=== PATIENT | female | born 1990 | race Caucasian/White ===

== ENCOUNTER 2017-07-13 15:17 | Inpatient (IN) | payer MEDICAID, OTHER ==
--- NOTE | 2017-07-13 16:16 | EDPHY ---
General - History Smoking Status: Current some day smoker Time Seen by Provider: 07/13/17 16:08 Narrative: CHIEF COMPLAINT: Fall, foot and ankle pain HISTORY OF PRESENT ILLNESS: Patient presents by private vehicle with complaints of ankle and foot pain after fall. She was climbing at [facility] earlier today. She says she was approximately 25-30 feet up when she slipped and fell. She was lead climbing in her rope did not catch her. She landed on a ledge on rocks. She did not strike her head or lose consciousness. She has complaints of pain only in ankles and heels on both feet. She has some tingling of the left midfoot. No numbness. No pain in the left shins, knees, hips. No pain in the chest or midline of the back. No nausea or vomiting. Unable to bear weight due to the pain. They were fairly high up, requiring an additional 2-3 hours to further descend. She was then carried to the vehicle. No other associated complaints or modifying factors. NPO status: 3:00 p.m. REVIEW OF SYSTEMS: Ten systems reviewed and are negative unless otherwise noted in the HPI PCP: None SPECIALISTS: None PAST MEDICAL HISTORY: Denies any medical history PAST SURGICAL HISTORY: No recent surgery SOCIAL HISTORY: Nonsmoker. Lives and works here independently. FAMILY HISTORY: Noncontributory EXAMINATION General Appearance: Alert, no distress Head: normocephalic, atraumatic. No depression. No scalp laceration. Eyes: Pupils equal and round, no conjunctival pallor or injection ENT, Mouth: Mucous membranes moist. Uvula midline. Airway widely patent Neck: Normal inspection, supple, non-tender Respiratory: Lungs are clear to auscultation. No wheezing rhonchi or crackles Cardiovascular: Regular rate and rhythm. No murmur Gastrointestinal: Abdomen is soft and nontender Back: non-tender, no bony abnormalities Neurological: GCS 15. A&O, nonfocal, strength is symmetric in the upper extremities. Strength of the great toes is symmetric. Sensory is symmetric in the dorsum of the feet with reported paresthesia on the left midfoot. Skin: Warm and dry, no rash. No petechiae. No purpura. No puncture laceration. There is moderate swelling and ecchymosis to both ankles Extremities: Significant tenderness of the left calcaneus, right midfoot, right medial malleolus and left lateral malleolus. Psychiatric: Mood and affect normal DIFFERENTIAL DIAGNOSES: Including but not limited to hematoma, calcaneus fracture, calcaneus contusion, ankle sprain, ankle fracture, mid foot fracture, mid foot sprain MDM: 4:15 p.m. Fall of reportedly 30 ft height with pain in both heels, both ankles. There is no pain in the shins, knees, hips, thighs, back, abdomen or pelvis. No head injury. She is neurovascular intact distally. I have ordered x-rays of both ankles and both calcaneal bones. No acute distress. Vital signs stable 4:50 p.m. X-rays of the feet and ankles reveal comminuted, displaced fractures of the calcaneus on the left; comminuted fracture of the right talus and midfoot fractures. I will consult Orthopedics. 5:20 p.m. Case discussed with both orthopedics trauma surgeon. Orthopedics will provide consultation shortly emergency department. Dr. Gomez will provide consultation and informs me that Orthopedics and admit patient. 6:00 p.m. Patient has been evaluated by orthopedic PA. She will discuss with her attending physician. They recommend posterior splint with stirrup on both lower extremities. They will likely not be able to take the patient to the operating room until tomorrow morning. Dr. Gomez will provide consultation as well. SUPERVISION: Patient was evaluated and examined in conjunction with my secondary supervising physician as documented. We have both examined the patient. (Raman Wright) Medical Decision Making: I did evaluate this patient independently and agree with the plan documented. I spoke with Dr. Patel who will admit her but is wanting to get a CT scan to assess for possible surgical intervention tonight. (Rohit Dawson) - Objective Vital Signs: Initial Vital Signs Temperature (C) 98.8 F 07/13/17 15:46 Heart Rate 80 07/13/17 15:46 Respiratory Rate 18 07/13/17 15:46 Blood Pressure 125/81 H 07/13/17 15:46 O2 Sat (%) 97 07/13/17 15:46 O2 Delivery Mode Room Air Allergies/Adverse Reactions: No Known Allergies Allergy (Verified 07/13/17 15:45) Home Medications: Medication Instructions Recorded Levonorgestrel [Elly] 1 each IY ONCE 07/13/17 Laboratory Results: Laboratory Results 07/13/17 17:17 07/13/17 17:17 Medications Given: Acetaminophen (Tylenol) 650 mg PO Q6HRS [facility] Stop: 01/10/18 00:00 Last Admin: 07/14/17 12:31 Dose: 650 mg Cyclobenzaprine HCl (Flexeril) 10 mg PO Q8HRS PRN PRN Reason: Muscle Spasms Stop: 01/09/18 20:15 Last Admin: 07/14/17 15:37 Dose: 10 mg Famotidine (Pepcid) 20 mg PO BID [facility] Stop: 01/09/18 20:59 Last Admin: 07/14/17 09:26 Dose: 20 mg Lactated Ringer's (Lr) 1,000 mls @ 125 mls/hr IV CONT [facility] Stop: 07/14/17 20:29 Last Admin: 07/14/17 04:00 Dose: 1,000 mls Morphine Sulfate (Morphine) 2 - 4 mg IVP Q3HRS PRN PRN Reason: breakthrough pain Stop: 07/23/17 20:15 Last Admin: 07/14/17 12:33 Dose: 2 mg Oxycodone HCl (Oxycodone Ir) 5 - 10 mg PO Q3HRS PRN PRN Reason: Breakthrough pain Stop: 07/23/17 20:15 Last Admin: 07/14/17 15:36 Dose: 10 mg Senna/Docusate Sodium (Senokot-S) 1 - 2 tab PO BID [facility] PRN Reason: Protocol Stop: 01/09/18 20:59 Last Admin: 07/14/17 09:25 Dose: 2 tab Discontinued Medications Hydromorphone HCl (Dilaudid) 1 mg IVP EDNOW ONE Stop: 07/13/17 19:27 Last Admin: 07/13/17 19:43 Dose: 1 mg Sodium Chloride (Ns) 1,000 mls @ 0 mls/hr IV ONCE ONE PRN Reason: Wide Open Stop: 07/13/17 18:45 Last Admin: 07/13/17 18:54 Dose: 1,000 mls Oxycodone HCl (Oxycodone Ir) 10 mg PO EDNOW ONE Stop: 07/13/17 16:20 Last Admin: 04/12/18 16:29 Dose: 10 mg Departure - Departure Disposition: [facility] Inpatient Acute Clinical Impression: Left calcaneal fracture Qualifiers: Encounter type: initial encounter Calcaneus location: unspecified portion of calcaneus Fracture type: closed Fracture alignment: displaced Qualified Code(s) : S92.002A - Unspecified fracture of left calcaneus, initial encounter for closed fracture Closed fracture of right talus Qualifiers: Encounter type: initial encounter Talus location: unspecified portion of talus Fracture alignment: displaced Qualified Code(s): S92.101A - Unspecified fracture of right talus, initial encounter for closed fracture Condition: Fair
[2017-07-13] MEDS ORDERED: oxyCODONE IR 5 MG TAB PO ONE (16:19)
[2017-07-13 17:34] LABS: INR 0.98 (0.83-1.16); PROTIME(PATIENT) 13.2 SEC (12.0-15.0)
[2017-07-13] MEDS ORDERED: NS 1,000 ML IV ONE (18:44)
[2017-07-13] MEDS ORDERED: HYDROmorphONE/DILAUDID 2 MG/ML INJ ONE (19:24)
[2017-07-13] MEDS ORDERED: HYDROmorphONE/DILAUDID 2 MG/ML INJ IVP ONE (19:26)
--- NOTE | 2017-07-13 20:04 | GHP ---
[f rep st] PREOP HISTORY AND PHYSICAL DATE OF ADMISSION: 07/13/2017 HISTORY OF PRESENT ILLNESS: Patient is 27-year-old female, who fell rock climbing, landing on both f eet. She complains of both feet hurting significantly. She denies any other injuries or concerns. She did not hit her head or lose consciousness. She thinks she fell 20-30 feet. She was roped, but her protection did not catch her. She landed on a ledge. Evaluation in the ER reveals a left calcan eal fracture and a right talus fracture. Lumbar spine films are negative, and she denies any lumbar pain. PAST MEDICAL HISTORY: Negative for any major hospitalizations or surgeries. SOCIAL HISTORY: Reveals she does smoke occasionally. FAMILY HISTORY: Noncontributory. ALLERGIES: None. MEDICATIONS: Elly, and she has an IUD. REVIEW OF SYSTEMS: Negative on a full 10-point review of systems, except as related to the HPI. PHYSICAL EXAMINATION: GENERAL: An alert 27-year-old female, who is in no acute distress. HEAD and NECK: Reveals no icterus or adenopathy. NECK: Supple nontender. CHEST: Clear and symmetric. CARD IAC: Regular rhythm without murmurs. ABDOMEN: Soft and nontender. EXTREMITIES: Reveal full pulse s. Both ankle and calcaneal areas are tender bilaterally with some swelling in the area, worse on th e left. She has palpable pedal pulses. NEUROLOGIC: Physiologic and symmetric. PSYCH: Reveals her to be alert, oriented, cooperative. SKIN: Intact with no significant abrasions or lacerations. IMPRESSION: A left calcaneal fracture, right talus fracture. No other major injuries. PLAN: Orthopedic consultation for admission and eventual surgical repair. /[id number]/MODL
[2017-07-13] MEDS ORDERED: ONDANSETRON 4 MG/2 ML VIAL IVP PRN (20:16)
[2017-07-13] MEDS ORDERED: MAGNESIUM HYDROXIDE 30 ML UDCUP PO PRN (20:16)
[2017-07-13] MEDS ORDERED: DIPHENOXYLATE/ATROPINE LOMOTIL 1 TAB PO PRN (20:16)
[2017-07-13] MEDS ORDERED: ONDANSETRON DISINTEGRATING 4 MG TAB PO PRN (20:16)
[2017-07-13] MEDS ORDERED: LACTULOSE 20 GM/30 ML UDCUP PO PRN (20:16)
[2017-07-13] MEDS ORDERED: NS 500 ML IV PRN (20:16)
[2017-07-13] MEDS ORDERED: BISACODYL 10 MG SUPP PR PRN (20:16)
[2017-07-13] MEDS ORDERED: diphenhydrAMINE 25 MG CAP PO PRN (20:16)
[2017-07-13] MEDS ORDERED: LR 1,000 ML IV SCH (20:30)
[2017-07-13] MEDS: SENNOSIDES/DOCUSATE SODIUM TAB PO SCH (20:50)
[2017-07-13] MEDS: FAMOTIDINE 20 MG TAB PO SCH (20:50)
[2017-07-13] MEDS: oxyCODONE IR 5 MG TAB PO PRN (20:50)
--- NOTE | 2017-07-13 21:27 | SOAPPROG ---
ANDREAS Progress Note Assessment/Plan: Assessment: Right talus fracture Left calcaneus fracture Plan: NWB LLE in posterior splint Elevate B/L LE's Ice to B/L knee/feet Pain medicine as neede Planning for surgical fixation Monday07/16/[address] Patel Ortho Stable Subjective: 27 year old female who was rock climbing and slipped and fell from about 30 feet up. She states that she does have pain in her bilateral ankle/foot. She was placed in bilateral lower extremity posterior splints. Objective: Vital Signs Temp Pulse Resp BP Pulse Ox 36.6 C 61 16 115/59 L 94 07/13/17 19:50 07/13/17 19:50 07/13/17 19:50 07/13/17 19:50 07/13/17 19:50 07/12/17 07/13/17 07/14/17 05:59 05:59 05:59 Intake Total 1000 Balance 1000 PT 13.2 SEC (12.0-15.0) 07/13/17 17:17 INR 0.98 (0.83-1.16) 07/13/17 17:17 Physical exam of the bilateral lower extremities: posterior splints placed. Patient able to move all toes. Normal sensation to light touch in the RLE. Some numbness in the LLE. Distal pulse present B/L LE. ICD10 Worksheet Patient Problems: Problems Problem Status Onset Closed fracture of right talus Acute Left calcaneal fracture Acute - ICD10 Problem Qualifiers (1) Closed fracture of right talus (2) Left calcaneal fracture
[2017-07-13] MEDS: ACETAMINOPHEN 325 MG TAB PO SCH (23:11)
[2017-07-13] MEDS: CYCLOBENZAPRINE 10 MG TAB PO PRN (23:12)
[2017-07-14] MEDS: oxyCODONE IR 5 MG TAB PO PRN ×6 (05:03→21:58)
[2017-07-14] MEDS: ACETAMINOPHEN 325 MG TAB PO SCH ×3 (05:04→18:36)
--- NOTE | 2017-07-14 06:16 | GCON ---
[f rep st] CONSULTATION ORTHOPEDIC CONSULT CHIEF COMPLAINT: Bilateral foot and ankle pain. HISTORY OF PRESENT ILLNESS: Patient is a 27-year-old female who was rock climbing today at [facility] and slipped and fell about 30 feet. She landed on her bilateral lower extremities. She denies any other complaints today. She denies any loss of consciousness. She states that she has significant pain in her left heel and her right ankle. She denies any nausea or vomiting. She is unable to bear any weight on her bilateral lower extremities due to the pain. She was brought into [facility] ER where x-rays were taken and showed a right talus fracture and a left calcaneus fracture. We are here for an orthopedic consult. PAST MEDICAL HISTORY: Overall healthy. PAST SURGICAL HISTORY: None. MEDICATIONS: see medication list in chart. SOCIAL HISTORY: Patient is a noncigarette smoker. Social alcohol. Lives and works here in [place] independently. FAMILY HISTORY: Noncontributory. REVIEW OF SYSTEMS: A 10-point review was done. Negative for any other complaints or concerns except for what was noted in the HPI. PHYSICAL EXAM: GENERAL: Pleasant, NAD. HEENT: NC/AT, EOMI, PERRLA. Ears and nares patent without discharge. Oropharynx is clear. NECK: Nontender to palpation. Full range of motion. MUSCULOSKELETAL: Right lower extremity: There is swelling present throughout her ankle with tenderness to palpation over the medial and lateral malleoli and distally to the tibia. She is able to move all 5 toes. She does have pain with any range of motion of her right ankle. Physical exam of the left lower extremity: There is swelling present in her heel and ankle region. There is tenderness to palpation over the calcaneus. She is able to move all 5 toes. Her calves are soft and nontender bilaterally. Normal sensation to light touch in the right lower extremity with some numbness felt in the left foot area. Distal pulse present in the bilateral lower extremities. SKIN: Warm, dry, and intact. NEUROLOGIC: Nonfocal. No deficits noted. PSYCHIATRIC: Alert and oriented x3. Appropriate mood and affect. RADIOGRAPHS: X-rays and CT scan were taken in the ER and show a right talus fracture vertically at the junction of the body and neck with extension to the subtalar joint, and a left moderately displaced longitudinal fracture through the calcaneus. IMPRESSION: Right talus fracture and left calcaneus fracture. PLAN: Patient was seen and examined by Dr. Patel and myself tonight, and it was discussed with the patient that she would need surgical fixation for both the right talus fracture and left calcaneus fracture. Posterior splints were placed on the bilateral lower extremities, and the patient was made nonweightbearing bilaterally. Conservative treatment was discussed including making sure she elevates as much as possible to help with the swelling and ice and pain medicine as needed. Dr. Patel will plan for an open reduction and internal fixation surgery for the right talus fracture and left calcaneus fracture. All questions were answered to the patient's satisfaction. /[id number]/MODL MTDD
--- NOTE | 2017-07-14 07:23 | PDMN ---
Medical Necessity Medical necessity: Pt meets INPT criteria per MD (est. LOS >2 MN for eval/tx of R talus fracture and L calcaneal fracture with surgical repair planned).
--- NOTE | 2017-07-14 07:38 | SOAPPROG ---
ANDREAS Progress Note Assessment/Plan: Assessment: Right talus fracture Left calcaneus fracture Plan: Patient is transferred to Trauma Service NWB LLE in posterior splint Elevate B/L LE's Ice to B/L knee/feet Pain medicine as needed DVT prophylaxis: lovenox PT/OT: work on transfers Patient would like a second opinion from [facility]. Dr. Patel did speak to Dr. Duncan who is out of town until Monday. Dr. Patel did contact Dr. Trotter from [facility] who is used car salesperson. Patient can either stay inpatient until Monday to be seen by Dr. Duncan or can be discharged and see Dr. Duncan in the office outpatient next week to then set up the surgery. Transferring care over to [facility]. Subjective: Patient is a 27 y.o. rock climber who fell yesterday fracturing her right talus and left calcaneus. She has her bilateral lower extremities in posterior splints and has them elevated. She states her pain is controlled with pain medicine. She does report that she would like a second opinion from [facility]. Objective: Vital Signs Temp Pulse Resp BP Pulse Ox 36.6 C 54 L 16 93/73 L 94 07/14/17 04:00 07/14/17 04:00 07/14/17 04:00 07/14/17 04:00 07/14/17 04:00 Laboratory Results 07/13/17 20:16 07/14/17 04:26 07/13/17 07/14/17 07/15/17 05:59 05:59 05:59 Intake Total 1600 375 Output Total 1450 Balance 150 375 PT 13.2 SEC (12.0-15.0) 07/13/17 17:17 INR 0.98 (0.83-1.16) 07/13/17 17:17 Physical exam of the BLE: legs are elevated. Splints are in place. She is able to move all 5 toes. Normal sensation to light touch in the bilateral lower extremities. ICD10 Worksheet Patient Problems: Problems Problem Status Onset Closed fracture of right talus Acute Left calcaneal fracture Acute - ICD10 Problem Qualifiers (1) Closed fracture of right talus Qualifiers: Encounter type: initial encounter Talus location: unspecified portion of talus Fracture alignment: displaced Qualified Code(s): S92.101A - Unspecified fracture of right talus, initial encounter for closed fracture (2) Left calcaneal fracture Qualifiers: Encounter type: initial encounter Calcaneus location: unspecified portion of calcaneus Fracture type: closed Fracture alignment: displaced Qualified Code(s): S92.002A - Unspecified fracture of left calcaneus, initial encounter for closed fracture
--- NOTE | 2017-07-14 08:19 | TRAUMAPN ---
Trauma Progress Note Assessment/Plan: 27yo F s/p rock climbing fall c R talus, L calcaneal fx TERTIARY EXAM Neuro: Pain is well controlled, distal neurovascular intact Pulm: Stable on room air, clear to auscultation bilaterally CV: Hemodynamically stable, regular rate and rhythm Abdomen: Abdomen is soft, nondistended nontender. Tolerating a regular diet Renal: Voiding Heme: Stable Id: Afebrile Ortho: Fractures as above, orthopedics planning fixation tomorrow. Dispo: Patient doing relatively well, is little emotional this morning but states that her pain is well controlled. No new injuries identified on tertiary exam this morning, trauma surgery to sign off. Please call with questions or concerns Subjective: Pain is controlled, a little overwhelmed but doing ok. Objective: Vital Signs Temp Pulse Resp BP Pulse Ox 36.5 C 50 L 15 89/56 L 99 07/14/17 07:39 07/14/17 07:39 07/14/17 07:39 07/14/17 07:39 07/14/17 07:39 Laboratory Results 07/13/17 20:16 07/14/17 04:26 07/13/17 07/14/17 07/15/17 05:59 05:59 05:59 Intake Total 1600 875 Output Total 1450 500 Balance 150 375 PT 13.2 SEC (12.0-15.0) 07/13/17 17:17 INR 0.98 (0.83-1.16) 07/13/17 17:17
[2017-07-14] MEDS: SENNOSIDES/DOCUSATE SODIUM TAB PO SCH ×2 (09:25→22:00)
[2017-07-14] MEDS: FAMOTIDINE 20 MG TAB PO SCH (09:26)
[2017-07-14] MEDS: CYCLOBENZAPRINE 10 MG TAB PO PRN (15:37)
[2017-07-14] MEDS: ENOXAPARIN 40 MG/0.4 ML SYR SC SCH ×2 (15:37→17:23)
--- NOTE | 2017-07-14 17:05 | ASMTCMCOM ---
CM Note CM Note Notes: Pt admitted with R talus fx & L calcaneus fx. Spoke with Edilson Trauma RN; Dr. Duncan to consult Monday & discuss surgical intervention. Spoke with RN; confirmed Financial Counseling met with pt today. PT/OT ordered; CM will follow for post op evals. Dc plan TBD Date Signed: 07/14/2017 05:04 PM Electronically Signed By:Shelli Singleton RN
[2017-07-14] MEDS ORDERED: ENOXAPARIN 40 MG/0.4 ML SYR SC SCH (21:00)
[2017-07-14] MEDS: LORazepam 0.5 MG TAB PO PRN (22:00)
[2017-07-15] MEDS: ACETAMINOPHEN 325 MG TAB PO SCH ×5 (00:32→23:57)
[2017-07-15] MEDS: FAMOTIDINE 20 MG TAB PO SCH ×3 (00:33→21:04)
[2017-07-15] MEDS: oxyCODONE IR 5 MG TAB PO PRN ×7 (05:18→23:58)
--- NOTE | 2017-07-15 09:53 | SOAPPROG ---
SOAP Progress Note Assessment/Plan: Assessment: no new overnight events. pain reasonably controlled. patient frustrated with care and her uncertainties as to her final ortho disposition and outcome ( awaiting second opinion from Dr. Duncan Monday). occasional toe numbness bilaterally. no back pain. no other complaints. avss. comfortable. bilateral thighs nontender. +pop pulse bilat. feet with diminished sensation - pink toes with full digital mobility. splints in place - do not appear overly compressive. extensive time spent with patient and family discussing pain control, LMWH, pending ortho assessment as well as alternative options of discharge with outpatient follow-up with Dr. Duncan. they would like to stay for all of the above reasons (appropriately so). will try to obtain a bed trapeze and wheelchair with leg supports to allow her to mobilize herself more independently - she is extremely motivated here. Plan: 07/15/17 09:48 Objective: Vital Signs Temp Pulse Resp BP Pulse Ox 36.9 C 89 16 99/56 L 92 07/15/17 07:56 07/15/17 07:56 07/15/17 07:56 07/15/17 07:56 07/15/17 07:56 Laboratory Results 07/13/17 20:16 07/14/17 04:26 07/14/17 07/15/17 07/16/17 05:59 05:59 05:59 Intake Total 1600 2520 550 Output Total 1450 5600 750 Balance 150 -3080 -200 PT 13.2 SEC (12.0-15.0) 07/13/17 17:17 INR 0.98 (0.83-1.16) 07/13/17 17:17 ICD10 Worksheet Patient Problems: Problems Problem Status Onset Closed fracture of right talus Acute Left calcaneal fracture Acute
[2017-07-15] MEDS: POLYETHYLENE GLYCOL 3350 17 GM PKT PO PRN (10:41)
[2017-07-15] MEDS: SENNOSIDES/DOCUSATE SODIUM TAB PO SCH ×2 (10:41→21:04)
[2017-07-15] MEDS: ENOXAPARIN 40 MG/0.4 ML SYR SC SCH (15:01)
[2017-07-16] MEDS: oxyCODONE IR 5 MG TAB PO PRN ×7 (03:15→21:20)
[2017-07-16] MEDS: ACETAMINOPHEN 325 MG TAB PO SCH ×3 (06:04→18:13)
[2017-07-16] MEDS: SENNOSIDES/DOCUSATE SODIUM TAB PO SCH ×2 (08:52→20:01)
[2017-07-16] MEDS: ENOXAPARIN 40 MG/0.4 ML SYR SC SCH (08:52)
[2017-07-16] MEDS: FAMOTIDINE 20 MG TAB PO SCH ×2 (08:52→20:01)
--- NOTE | 2017-07-16 10:51 | TRAUMAPN ---
Trauma Progress Note Assessment/Plan: 27yo F s/p rock climbing fall c R talus, L calcaneal fx TERTIARY EXAM Neuro: Pain is well controlled, distal neurovascular intact, ice packs on distal toes Pulm: Stable on room air, clear to auscultation bilaterally CV: Hemodynamically stable, regular rate and rhythm Abdomen: Abdomen is soft, nondistended nontender. Tolerating a regular diet, having bowel function Renal: Voiding Heme: Stable Id: Afebrile Ortho: Fractures as above, patient remains nonweightbearing to bilateral lower extremities, splinted appropriately. Plan is for consultation by Dr. Duncan tomorrow, plan per him. Dispo: Orthopedics consultation, likely operative fixation Subjective: Doing well, no complaints. Objective: Vital Signs Temp Pulse Resp BP Pulse Ox 36.6 C 64 16 115/61 96 07/16/17 08:00 07/16/17 08:00 07/16/17 08:00 07/16/17 08:00 07/16/17 08:00 Laboratory Results 07/13/17 20:16 07/14/17 04:26 07/15/17 07/16/17 07/17/17 05:59 05:59 05:59 Intake Total 2520 2100 750 Output Total 5600 750 Balance -3080 1350 750 PT 13.2 SEC (12.0-15.0) 07/13/17 17:17 INR 0.98 (0.83-1.16) 07/13/17 17:17
[2017-07-17] MEDS: ACETAMINOPHEN 325 MG TAB PO SCH ×5 (00:08→23:05)
[2017-07-17] MEDS: oxyCODONE IR 5 MG TAB PO PRN ×7 (00:21→23:05)
[2017-07-17] MEDS: LORazepam 0.5 MG TAB PO PRN ×3 (00:22→23:06)
[2017-07-17] MEDS: FAMOTIDINE 20 MG TAB PO SCH ×2 (09:12→19:55)
[2017-07-17] MEDS: SENNOSIDES/DOCUSATE SODIUM TAB PO SCH ×2 (09:12→19:58)
[2017-07-17] MEDS: ENOXAPARIN 40 MG/0.4 ML SYR SC SCH (09:16)
--- NOTE | 2017-07-17 17:15 | ASMTCMCOM ---
CM Note CM Note Notes: Pt to OR tomorrow for bilateral ORIF. CM to follow. Date Signed: 07/17/2017 05:14 PM Electronically Signed By:СВЕТЛАНА Fraga
--- NOTE | 2017-07-17 21:08 | TRAUMAPN ---
Trauma Progress Note Assessment/Plan: Bilateral ankle fracture calcaneus/talus Nonweightbearing bilateral lower extremities Pain well controlled Dr. Duncan to operate tomorrow per patient family Regular rate and rhythm Clear to auscultation Abdomen soft nontender nondistended Extremities bilateral lower extremity posterior splint. Distally neurovascularly intact Trauma surgery decided after morning after OR. Objective: Vital Signs Temp Pulse Resp BP Pulse Ox 36.4 C 62 16 114/69 97 07/17/17 16:00 07/17/17 16:00 07/17/17 16:00 07/17/17 16:00 07/17/17 16:00 Laboratory Results 07/13/17 20:16 07/14/17 04:26 07/16/17 07/17/17 07/18/17 05:59 05:59 05:59 Intake Total 2100 1750 950 Output Total 750 800 Balance 1350 950 950 PT 13.2 SEC (12.0-15.0) 07/13/17 17:17 INR 0.98 (0.83-1.16) 07/13/17 17:17
[2017-07-18] MEDS: oxyCODONE IR 5 MG TAB PO PRN ×6 (03:03→21:09)
[2017-07-18] MEDS: ACETAMINOPHEN 325 MG TAB PO SCH ×3 (05:17→18:03)
[2017-07-18] MEDS: FAMOTIDINE 20 MG TAB PO SCH ×2 (08:23→21:08)
[2017-07-18] MEDS: SENNOSIDES/DOCUSATE SODIUM TAB PO SCH ×2 (08:26→21:09)
[2017-07-18] MEDS ORDERED: MIDAZOLAM 2 MG/2 ML VIAL IVP ONE (09:04)
--- NOTE | 2017-07-18 09:04 | PDANEPAE ---
ANE History of Present Illness R talus ORIF, L calcaneus ORIF ANE Past Medical History Past Medical History: B LE fx - Cardiovascular History Hx Hypertension: No - Pulmonary History Hx COPD: No Hx Oxygen in Use at Home: No Hx Sleep Apnea: No Sleep Apnea Screening Result - Last Documented: Negative - Endocrine History Hx Diabetes: No - Chronic Pain History Chronic Pain: No ANE Review of Systems Review of systems is: negative Review of Systems: - Exercise capacity METS (RN): 6 METS ANE Patient History - Allergies Allergies/Adverse Reactions: No Known Allergies Allergy (Verified 07/13/17 15:45) - Home Medications Home medications: home medication list seen and reviewed Home Medications: Levonorgestrel [Elly] 1 each IY ONCE 07/13/17 [Last Taken 07/13/17] - NPO status NPO Status: no food or drink >8 hours NPO Since - Liquids (Date): 07/17/17 NPO Since - Liquids (Time): 00:00 NPO Since - Solids (Date): 07/17/17 NPO Since - Solids (Time): 00:00 - Anes Hx Anes Hx: no prior problems - Smoking Hx Smoking Status: Current some day smoker - Family Anes Hx Family Anes Hx: none ANE Labs/Vital Signs - Labs Result Diagrams: 07/13/17 20:16 07/14/17 04:26 - Vital Signs Blood Pressure: 111/82 Heart Rate: 65 Respiratory Rate: 16 O2 Sat (%): 96 Height: 172.72 cm Weight: 58.967 kg ANE Physical Exam - Airway Neck exam: FROM Mallampati Score: Class 1 Mouth exam: normal dental/mouth exam - Pulmonary Pulmonary: no respiratory distress - Cardiovascular Cardiovascular: regular rate and rhythym - ASA Status ASA Status: II ANE Anesthesia Plan Anesthesia Plan: GA w LMA Regional Anesthesia: single shot NB (R), popliteal SNB, POPC/PSR
[2017-07-18] MEDS ORDERED: BUPIVACAINE 0.5% 30 ML SDV ONE (09:29)
[2017-07-18] MEDS ORDERED: ceFAZolin 2 GM/DEXTROSE 100 ML IV ONE (10:05)
[2017-07-18] MEDS ORDERED: LIDOCAINE 2% 100 MG/5 ML SYR ONE (10:16)
[2017-07-18] MEDS ORDERED: ONDANSETRON 4 MG/2 ML VIAL ONE ×2 (10:16→15:25)
[2017-07-18] MEDS ORDERED: PROPOFOL 200 MG/20 ML VIAL ONE (10:16)
[2017-07-18] MEDS ORDERED: DEXAMETHASONE 4 MG/ML VIAL ONE (10:16)
[2017-07-18] MEDS ORDERED: fentaNYL 100 MCG/2 ML INJ ONE ×3 (10:17→15:10)
[2017-07-18] MEDS ORDERED: ROPIVACAINE HCL 150 MG/30 ML INJ ONE (10:19)
[2017-07-18] MEDS ORDERED: ceFAZolin 2 GM/SWFI 20 ML SYR IVP ONE (10:21)
[2017-07-18] MEDS ORDERED: ceFAZolin 2 GM/SWFI 2 GM/20 ML SYR IVP ONE (10:30)
[2017-07-18] MEDS ORDERED: HYDROmorphONE/DILAUDID 2 MG/ML INJ ONE (11:04)
[2017-07-18] MEDS ORDERED: epHEDrine SULFATE 10 MG/ML SYR ONE (11:19)
[2017-07-18] MEDS ORDERED: PROMETHAZINE HCL 25 MG/ML INJ IVP PRN (12:03)
[2017-07-18] MEDS ORDERED: LABETALOL HCL 5 MG/ML 20 ML MDV IVP PRN (12:03)
[2017-07-18] MEDS ORDERED: ACETAMINOPHEN 500 MG TAB PO PRN (12:03)
[2017-07-18] MEDS ORDERED: MEPERIDINE 25 MG/ML SYR IVP PRN (12:03)
[2017-07-18] MEDS ORDERED: HYDROCODONE/APAP 5/325 TAB PO PRN (12:03)
[2017-07-18] MEDS ORDERED: NALOXONE HCL 0.4 MG/ML INJ IVP PRN ×2 (12:03→14:00)
--- NOTE | 2017-07-18 12:09 | POSTANESTH ---
Post Anesthetic Evaluation Cardiovascular Status: Normal, Stable, Similar to Pre-Op Cond Respiratory Status: Normal, Stable, Similar to Pre-op Cond. Level of Consciousness/Mental Status: Can Participate in Eval, Mildly Sleepy, Arousable Pain Control: Adequate, Prn Tx Ordered Nausea/Vomiting Control: Adequate, Prn Tx Ordered Complications Possibly Related to Anesthesia: None Noted
[2017-07-18] MEDS ORDERED: ceFAZolin 1 GM VIAL ONE (12:13)
[2017-07-18] MEDS ORDERED: PHENYLEPHRINE HCL 100 MCG/ML SYR ONE (12:35)
[2017-07-18] MEDS ORDERED: morphINE PCA 30 MG/30 ML PCA IV PRN (14:00)
--- NOTE | 2017-07-18 14:00 | POSTOPPROG ---
Post Op Note Date of Operation: 07/18/17 Surgeon: Kulwant Duncan Anesthesia: GET(General Endotracheal) Pre-op Diagnosis: L calcaneus fx, R talus fx Post-op Diagnosis: Same Procedure: ORIF L calcaneus fx, ORIF R talus fx Inf/Abcess present in the surg proc area at time of surgery?: No EBL: Minimal Complications: none
[2017-07-18] MEDS: fentaNYL 100 MCG/2 ML INJ IVP PRN ×3 (14:17→14:51)
[2017-07-18] MEDS ORDERED: HYDROCODONE/APAP 5/325 TAB ONE (14:33)
[2017-07-18] MEDS ORDERED: oxyCODONE IR 5 MG TAB ONE ×2 (14:48→15:15)
--- NOTE | 2017-07-18 15:01 | GOP ---
[f rep st] OPERATIVE REPORT DATE OF OPERATION: 07/18/2017 SURGEON: Kulwant Duncan MD ANESTHESIA: General plus right popliteal block performed by the anesthesiologist at my request for p ostoperative pain management. PREOPERATIVE DIAGNOSIS: 1. Left calcaneus fracture. 2. Right talar neck fracture. 3. Right lateral process talus fracture. POSTOPERATIVE DIAGNOSIS: 1. Left calcaneus fracture. 2. Right talar neck fracture. 3. Right lateral process talus fracture. PROCEDURE PERFORMED: 1. Open reduction/internal fixation, left calcaneus fracture. 2. Open reduction/internal fixation, right talar fracture. 3. Open reduction/internal fixation, right lateral process talus fracture. 4. Intraoperative use of fluoroscopy. FINDINGS: ESTIMATED BLOOD LOSS: Minimal. INDICATIONS: Patient is a 27-year-old who, approximately 5 days prior, sustained a 30 foot-fall whil e climbing, resulting in bilateral hind foot injuries. Based on the displaced intra-articular nature of her injuries, it was recommended that operative treatment consisting of open reduction/internal f ixation be pursued. Patient acknowledged she understood the potential risks of the surgery including , but not limited to, bleeding, infection, neurovascular damage, loss of limb or limb function, malun ion, nonunion, need for hardware removal, pain or functional limitations despite operative treatment, avascular necrosis, or functional limitations. She acknowledged that the majority of potential limi tations were based more on the nature of her injury than any surgery. She acknowledged that there we re no guarantees that despite optimal treatment she would be able to return to competitive or recreat ional rock climbing. She acknowledged she understood the potential risks, planned procedure, and pos toperative plan well, and had all questions answered prior to surgery. She gave her consent for the operative procedure. DESCRIPTION OF PROCEDURE: Patient brought into the operating room after IV antibiotics were administ ered. A popliteal block was performed on the right by the anesthesiologist at my request for postope rative pain management. General anesthetic was administered. A tourniquet was placed on the left th igh, and the patient was transferred to a right lateral decubitus position on the operating room tabl e with beanbag support, axillary roll, and padding of all bony prominences. The left lower extremity was prepped and draped in standard sterile fashion. After marking the incision, and Guzman wrap exsang uination, tourniquet was inflated to 250. A vertical incision was made over the lateral aspect of the calcaneal tuberosity just distal to the A chilles tendon. Skin and subcutaneous tissues were sharply incised. Care was taken to avoid damage to the sural nerve. Sharp dissection was carried down to the tuberosity level. A tongue variant spl it in the lateral tuberosity was noted. Utilizing a curette and rongeur, interposed fibrous tissue w as removed. A Schanz pin was placed in the tuberosity to aid in the reduction as a joystick. Utiliz ing the Schanz pin as a joystick, the fracture was anatomically reduced and provisionally pinned with two 1.6 mm Lela wires. Fluoroscopic clinical views, as well as clinical palpation, revealed an atomic reduction. A 6-hole quarter tubular plate was then contoured to fit the superior tuberosity. Through the superior aspect of the plate, a 2.7 mm cortical screw was placed in lag fashion through 1 of the holes. An additional 2.7 mm screw was placed through the plate, further securing the proxim al segment. A 2.7 mm cortical screw was then placed through the plate in a iwlvafd-oe-tyirnd directi on, inferior to the plane of the fracture. A supplemental 2.7 mm cortical screw was placed in lag fa shion across the fracture distal to the plate. After making a stab incision on the posterior aspect of the heel, an additional 2.7 mm cortical screw was placed in lag fashion through the proximal aspec t of the tuberosity segment. Fluoroscopic views confirmed anatomic reduction and favorable placement . Attention was then directed toward the inferomedial tuberosity fracture. A partially-threaded Schanz pin (2.5 mm diameter) was placed in this fragment and used as a joystick to reduce the segment. Aft er making a stab incision along the medial aspect of the heel, a 2.7 mm cortical screw was placed in a aeyduc-vn-gnbkdba direction in lag fashion across this fragment. Fluoroscopic views confirmed favo rable reduction and hardware placement. Attention was directed towards closure. The subcutaneous tissue was closed with 3-0 Vicryl suture in interrupted fashion. Skin was closed with 4-0 nylon interrupted vertical mattress sutures. The wounds were dressed with sterile Adaptic, 4 x 4, Kerlix, and an Guzman wrap. The drapes were pulled down, and attention was directed toward the right foot. The patient was transferred to a supine pos ition, keeping the back table sterile. A tourniquet was placed on the right thigh, bump underneath t he right hip and shoulder, and the right lower extremity was prepped and draped in standard sterile f ashion. After marking the incision and Guzman wrap exsanguination, the tourniquet was inflated to 250. Both medial and lateral approaches were utilized for the talus. A longitudinal incision was made la teral to the extensor digitorum communis tendons along the lateral hindfoot. Skin and subcutaneous t issues were sharply incised. The superficial peroneal nerve was identified and retracted out of harm 's way. The extensor retinaculum was then incised. Dissection was carried inferior to the extensor digitorum brevis musculature, exposing the lateral process of the talus. Dissection was then carried in a clyezrm-er-dqqqqa direction, exposing the neck of the talus. Care was taken to avoid damage to the sinus tarsi blood supply to the talar body. Interposed fibrous tissue was freed with a dental p ick, and fine tip curette. The lateral process talus fragment was reduced with a dental pick, and pr ovisionally pinned with Lela wire. Two 2.0 mm cortical screws were placed in lag fashion across this fracture. Fluoroscopic views confirmed anatomic reduction and favorable hardware placement. A supplemental medial approach was then utilized. A longitudinal incision was made along the medial aspect of the talar neck. Skin and subcutaneous tissues were sharply incised. Sharp dissection was carried in the interval between the tibialis anterior and tibialis posterior. Limited soft tissue re flection of the fracture site was performed. Then 2.5 mm Schanz pins were placed in the head and nec k segment, both medially and laterally. These were utilized as dilan sticks for reduction. With the f racture held in an anatomically-reduced position, ensuring that no varus occurred, provisional Cha ner wires were placed across the fracture site. Fracture reduction was confirmed fluoroscopically an d found to be favorable. A 2.4 mm recon was then cut and contoured to fit the lateral talus. Two 2. 4 mm cortical screws were placed through the plate, both distal and proximal to the fracture site. F luoroscopic views confirmed anatomic reduction and favorable hardware placement. Medially a 2.7 mm c ortical screw was placed in non-lag fashion from the medial head of the talus across the fracture sit e. The countersinking was performed to enable the screw to be below the joint surface. Further fluo roscopic views confirmed favorable hardware placement. Attention was directed toward closure. The deep capsular tissue and muscle of the extensor digitorum brevis was reapproximated with 2-0 Vicryl suture in an interrupted fashion. Subcutaneous tissue was closed with 3-0 Vicryl suture in an interrupted fashion, and the skin was closed with 3-0 nylon inte rrupted vertical mattress sutures. Tourniquet had been deflated prior to final closure with no untow shalini bleeding seen. The wounds on the right were dressed with sterile Adaptic, 4 x 4, and Webril, and leg was placed in a below-knee splint. The patient tolerated the procedure well and was taken to [facility] recovery room, extubated, in stable condition postoperatively. All sponge, needle, and instrument counts were reported as being correct. DRAINS: None. COMPLICATIONS: None. PLAN: The patient will be admitted for medical management and gait training. She will be nonweightb earing on the right and weightbearing as tolerated on the left lower extremity. /[id number]/MODL
--- NOTE | 2017-07-18 15:48 | SOAPPROG ---
SOJAYCE Progress Note Assessment/Plan: Assessment: 07/18/17 Nothing further to add. Spoke with Dr. Duncan and will sign off at this point. Objective: Vital Signs Temp Pulse Resp BP Pulse Ox 36.5 C 78 16 108/86 H 97 07/18/17 15:36 07/18/17 15:36 07/18/17 15:36 07/18/17 15:36 07/18/17 15:36 Laboratory Results 07/13/17 20:16 07/14/17 04:26 07/17/17 07/18/17 07/19/17 05:59 05:59 05:59 Intake Total 1750 1350 1380 Output Total 800 40 Balance 950 1350 1340 PT 13.2 SEC (12.0-15.0) 07/13/17 17:17 INR 0.98 (0.83-1.16) 07/13/17 17:17 ICD10 Worksheet Patient Problems: Problems Problem Status Onset Closed fracture of right talus Acute Left calcaneal fracture Acute
[2017-07-18] MEDS: POLYETHYLENE GLYCOL 3350 17 GM PKT PO PRN (18:03)
[2017-07-18] MEDS: LORazepam 0.5 MG TAB PO PRN (21:08)
[2017-07-18] MEDS: CYCLOBENZAPRINE 10 MG TAB PO PRN (21:15)
[2017-07-19] MEDS: oxyCODONE IR 5 MG TAB PO PRN ×6 (02:34→23:24)
[2017-07-19] MEDS: LORazepam 0.5 MG TAB PO PRN ×3 (02:38→23:22)
--- NOTE | 2017-07-19 05:46 | SOAPPROG ---
SOAP Progress Note Assessment/Plan: Assessment: S/P ORIF R talus, L Calcaneus Nerve block wearing off. Pain increasing slightly Jeevan pain on po Jeevan diet + U/O R splint, L dressing intact No D/C Toes with good cap refill BL + sensation toes 1-5 BL Plan: OOB Probable D/C today 07/19/17 05:44 Objective: Vital Signs Temp Pulse Resp BP Pulse Ox 36.6 C 71 16 125/64 H 98 07/19/17 04:00 07/19/17 04:00 07/19/17 04:00 07/19/17 04:00 07/19/17 04:00 Laboratory Results 07/13/17 20:16 07/14/17 04:26 07/17/17 07/18/17 07/19/17 05:59 05:59 05:59 Intake Total 1750 1350 2195 Output Total 800 2640 Balance 950 1350 -445 PT 13.2 SEC (12.0-15.0) 07/13/17 17:17 INR 0.98 (0.83-1.16) 07/13/17 17:17 ICD10 Worksheet Patient Problems: Problems Problem Status Onset Closed fracture of right talus Acute Left calcaneal fracture Acute
[2017-07-19] MEDS: ACETAMINOPHEN 325 MG TAB PO SCH ×4 (05:56→17:16)
--- NOTE | 2017-07-19 06:09 | GDS ---
[f rep st] DISCHARGE SUMMARY ADMISSION DIAGNOSIS: Fall from height with right talus and left calcaneal fractures. OPERATIONS PERFORMED: On 07/18, the patient underwent ORIF right talus, ORIF left calcaneus. HISTORY OF ADMISSION: The patient is a 27-year-old, who sustained a fall of approximately 30 feet wh ile climbing, resulting in bilateral hind foot injuries. She was admitted as a trauma. Patient requ ested operative treatment be undertaken by Dr. Duncan and orthopedic care was subsequently transferre d. On 07/18/2017, she underwent the aforementioned operative procedures. She was taken to the [facility] ar med/surg floor in stable condition. POSTOPERATIVE COURSE: Was unremarkable. Pain was present but was controlled with oral medicine. Murray britt was able to transfer herself safely into a wheelchair without difficulty. She was otherwise medica lly stable. DISPOSITION: Discharged home, nonweightbearing right lower extremity. Weightbearing as tolerated le ft lower extremity. FOLLOWUP: Will be in 1 week. /[id number]/MODL
[2017-07-19] MEDS: CYCLOBENZAPRINE 10 MG TAB PO PRN (06:10)
[2017-07-19] MEDS ORDERED: MIDAZOLAM 2 MG/2 ML VIAL IVP ONE (10:31)
--- NOTE | 2017-07-19 14:11 | ASMTCMCOM ---
CM Note CM Note Notes: While pt has d/c order today she likely will not d/c due to pain. Pt has not been able to work with OT/PT post-surgery. Pt has DME and support of family. Anticipate pt will d/c with no CM needs but CM to continue to follow pt progress with pain and if OT/PT can work with her before d/c. Date Signed: 07/19/2017 02:11 PM Electronically Signed By:СВЕТЛАНА Fraga
[2017-07-19] MEDS: ENOXAPARIN 40 MG/0.4 ML SYR SC SCH (14:50)
[2017-07-19] MEDS: SENNOSIDES/DOCUSATE SODIUM TAB PO SCH ×2 (14:51→20:07)
[2017-07-19] MEDS: FAMOTIDINE 20 MG TAB PO SCH ×2 (14:53→20:07)
[2017-07-20] MEDS: ACETAMINOPHEN 325 MG TAB PO SCH ×3 (00:43→11:28)
[2017-07-20] MEDS: oxyCODONE IR 5 MG TAB PO PRN ×4 (06:35→14:36)
[2017-07-20 08:08] VITALS: BP 88/62
[2017-07-20] MEDS: SENNOSIDES/DOCUSATE SODIUM TAB PO SCH (08:21)
[2017-07-20] MEDS: CYCLOBENZAPRINE 10 MG TAB PO PRN (08:21)
[2017-07-20] MEDS: ENOXAPARIN 40 MG/0.4 ML SYR SC SCH (08:21)
[2017-07-20] MEDS: FAMOTIDINE 20 MG TAB PO SCH (08:21)
--- NOTE | 2017-07-20 10:58 | ASMTLACE ---
LACE Length of stay for Answers: 4-6 days current admission Acuity / Level of Answers: Yes Care: Did the patient have an inpatient admission? # of Emergency department Answers: 0 visits in the last 6 months Score: 7 Date Signed: 07/20/2017 10:57 AM Electronically Signed By:Mary Antony RN
--- NOTE | 2017-07-20 10:59 | ASMTCMCOM ---
CM Note CM Note Notes: Chart reviewed. Patient has been medically cleared for discharge to home independently, no needs identified. CM available should needs arise. Date Signed: 07/20/2017 10:58 AM Electronically Signed By:Mary Antony RN
[2020-07-13] MEDS ORDERED: LEVONORGESTREL IUD IY ONE (09:00)
== END 2017-07-20 14:42 | disposition home or self-care (01) | DRG 314 ==
LOC: OBSVTOIN 19:25 → F3N 20:15
PROVIDERS: ADMIT Orthopaedic Surgery Foot and Ankle Surgery; ATTEND Surgery
DX: S92.111A Displaced fracture of neck of right talus, initial encounter for closed fracture (principal); S92.191A Other fracture of right talus, initial encounter for closed fracture; S92.002A Unspecified fracture of left calcaneus, initial encounter for closed fracture; W17.89XA Other fall from one level to another, initial encounter; Y92.828 Other wilderness area as the place of occurrence of the external cause; Y93.31 Activity, mountain climbing, rock climbing and wall climbing
CPT/HCPCS: 92523-GN; 96374; 97116-GP; 97161-GP; 97165-GO; 97530-GP; C1713; J0690; J1100; J1170; J1650; J2001; J2250; J2270; J2370; J2405; J2704; J2795; J3010

== ENCOUNTER 2017-08-29 15:47 | Emergency (ER) | payer MEDICAID ==
[2017-08-29 15:54] VITALS: BP 131/99
--- NOTE | 2017-08-29 16:10 | EDPHY ---
HPI/HX/ROS/PE/MDM Narrative: CHIEF COMPLAINT: Possible seizure last night HPI: This patient is a healthy 27 year old female. Last night, she went out with friends and had two drinks and some tobacco and marijuana, which is not abnormal for her. She suddenly felt very nauseous and sat down, and then passed out for 2-3 minutes. Her friends were present and reported that all her muscles were tight and she was "grunting". She remembers having a terrible nightmare while unconscious. She did not bite her tongue, and was not incontinent of urine. Her friends did not report any tonic-clonic seizure activity. She felt normal within 5 minutes of this episode. She denies any trauma. She has never had similar symptoms in the past. Six weeks ago, the patient fell 30 ft while climbing in [facility] and sustained fractures in both lower extremities. She does not recall hitting her head during that incident. She has mostly discontinued her medications, and her last dose of oxycodone was two days ago. She reports some mood swings before her episode last night. Family history positive for epilepsy in her mother. No fever, chest pain, shortness of breath, vomiting, diarrhea, urinary complaints, or other associated symptoms. REVIEW OF SYSTEMS: Aside from elements discussed in the HPI, a comprehensive 10-point review of systems was reviewed and is negative. PMH: Bilateral lower extremity fractures. SOCIAL HISTORY: Single. Lives in [place]. Does not abuse tobacco, alcohol, or illicit drugs. PHYSICAL EXAM: General:Patient is alert, in no acute distress. ENT:Eyes are normal to inspection. ENT inspection normal. Neck: Normal inspection. Full range of motion. Respiratory:No respiratory distress. Breath sounds normal bilaterally. Cardiovascular: Regular rate and rhythm. Strong peripheral pulses. Normal cap refill. Abdomen:The abdomen is nontender to palpation. Back: Normal to inspection. No tenderness to palpation. Skin: Normal color. No rash. Warm and dry. Extremities: Bilateral lower extremities in orthopedic boots. Otherwise normal appearance. Neuro: Oriented x3. Normal motor function. Normal sensory function. ED Course: 27 y/o female presents following a possible seizure yesterday evening. The patient's history is more consistent with a syncopal episode than seizure. Plan for EKG, labs including CBC, chemistries, troponin, BHCG. Plan for CT head to r/ o acute processes. EKG was ordered and interpreted by myself. Please see [employer] system for official reading. Sinus rhythm, rate 53. Reviewed laboratory studies. Troponin and BHCG negative. Labs otherwise unremarkable. 17:[address] head. Negative for acute processes. 17:[address] Jones, radiologist. CT head report concurs with my interpretation. Reassessed patient. Discussed imaging and laboratory results. Plan to discharge patient home in good condition. Follow up and return precautions discussed. I have provided a referral to neurology for further evaluation. She is comfortable with this plan. MDM: I suspect this patient likely suffered a syncopal event with some associated convulsive activitiy rather than a true seizure last night, as she describes no post-ictal period, incontinence, tongue injury, and has many possible etiologies for syncope including alcohol and drug use and prolonged standing while resting her weight on her crutches. We performed an extensive workup which is negative. I will refer the patient to Neurology as she does have some family history of epilepsy. - Data Points Imaging: Discussed imaging studies w/ enrollment counselor Radiologist, I viewed and interpreted images myself Laboratory Results: Laboratory Results 08/29/17 16:15 08/29/17 16:15 08/29/17 08/29/17 08/29/17 16:15 16:15 16:15 WBC 6.23 10^3/uL 10^3/uL (3.80-9.50) RBC 4.80 10^6/uL 10^6/uL (4.18-5.33) Hgb 15.1 g/dL g/dL (12.6-16.3) Hct 44.2 % % (38.0-47.0) MCV 92.1 fL fL (81.5-99.8) MCH 31.5 pg pg (27.9-34.1) MCHC 34.2 g/dL g/dL (32.4-36.7) RDW 12.3 % % (11.5-15.2) Plt Count 319 10^3/uL 10^3/uL (150-400) MPV 9.5 fL fL (8.7-11.7) Neut % (Auto) 43.8 % % (39.3-74.2) Lymph % (Auto) 38.8 % % (15.0-45.0) [place] % (Auto) 5.9 % % (4.5-13.0) Eos % (Auto) 10.0 % H % (0.6-7.6) Baso % (Auto) 1.3 % % (0.3-1.7) Nucleat RBC Rel Count 0.0 % % (0.0-0.2) Absolute Neuts (auto) 2.73 10^3/uL 10^3/uL (1.70-6.50) Absolute Lymphs (auto) 2.42 10^3/uL 10^3/uL (1.00-3.00) Absolute Monos (auto) 0.37 10^3/uL 10^3/uL (0.30-0.80) Absolute Eos (auto) 0.62 10^3/uL H 10^3/uL (0.03-0.40) Absolute Basos (auto) 0.08 10^3/uL 10^3/uL (0.02-0.10) Absolute Nucleated RBC 0.00 10^3/uL 10^3/uL (0-0.01) Immature Gran % 0.2 % % (0.0-1.1) Immature Gran # 0.01 10^3/uL 10^3/uL (0.00-0.10) Sodium 140 mEq/L mEq/L (135-145) Potassium 4.2 mEq/L mEq/L (3.3-5.0) Chloride 106 mEq/L mEq/L (97-110) Carbon Dioxide 23 mEq/l mEq/l (22-31) Anion Gap 11 mEq/L mEq/L (8-16) BUN 12 mg/dL mg/dL (7-23) Creatinine 0.9 mg/dL mg/dL (0.6-1.0) Estimated GFR > 60 Glucose 84 mg/dL mg/dL (70-100) Calcium 9.2 mg/dL mg/dL (8.5-10.4) Troponin I < 0.012 ng/mL ng/mL (0.000-0.034) Beta HCG, Qual NEGATIVE Medications Given: Discontinued Medications Sodium Chloride (Ns) 1,000 mls @ 0 mls/hr IV EDNOW ONE; Wide Open PRN Reason: Protocol Stop: 08/29/17 16:14 Last Admin: 08/29/17 16:28 Dose: 1,000 mls General Time Seen by Provider: 08/29/17 16:00 Initial Vital Signs: Initial Vital Signs Heart Rate 76 08/29/17 15:50 Respiratory Rate 18 08/29/17 15:50 Blood Pressure 131/99 H 08/29/17 15:50 O2 Sat (%) 98 08/29/17 15:50 O2 Delivery Mode Room Air Allergies/Adverse Reactions: hydrocodone Allergy (Verified 08/29/17 15:54) Anxiety Home Medications: Medication Instructions Recorded Levonorgestrel [Elly] 1 each IY ONCE 07/13/17 LORazepam [Ativan (*)] 0.5 mg PO Q6 PRN #5 tab 07/20/17 Sennosides/Docusate Sodium 1 - 2 tab PO BID #20 tab 07/20/17 [Senokot-S] oxyCODONE IR [Oxycodone Ir (*)] 5 - 10 mg PO Q4-6PRN PRN #40 tab 07/20/17 Departure - Departure Disposition: Home, Routine, Self-Care Clinical Impression: Syncope Condition: Good Instructions: Syncope (ED) Additional Instructions: 1. Follow up with a neurologist in 1-2 weeks for further evaluation. 2. Return to the emergency department for recurrent episodes of syncope or seizure-like activity, fever, chest pain, difficulty breathing, or other worsening of condition or further concerns. Referrals: Rohit Ayala DO [Doctor of Osteopathy] - As per Instructions Report Scribed for: Fuad Britton Report Scribed by: Sandy Urena Date of Report: 08/29/17 Time of Report: 16:10 Physician Review and Approval Statement: Portions of this note were transcribed by an ED scribe. I personally performed the history, physical exam, and medical decision making; and confirm the accuracy of the information in the transcribed note.
[2017-08-29] MEDS ORDERED: NS 1,000 ML IV ONE (16:13)
--- NOTE | 2017-08-29 16:25 | CPEKG ---
Heart Rate: 53 RR Interval: 1132 P-R Interval: 120 QRSD Interval: 96 QT Interval: 456 QTC Interval: 429 P [place]: 20 QRS [place]: 54 T Wave [place]: 18 EKG Severity - NORMAL ECG - EKG Impression: SINUS RHYTHM Electronically Signed By: Temo Enrique 30-Aug-2017 11:54:34
[2017-08-29 16:32] LABS: PLATELET COUNT 319 10^3/uL (150-400)
== END 2017-08-29 17:48 | disposition home or self-care (01) ==
DX: R55 Syncope and collapse (principal); E86.9 Volume depletion, unspecified